=== PATIENT | male | born 1970 | race Caucasian/White ===

== ENCOUNTER 2020-07-19 07:37 | Observation (INO) | payer BC ==
[~2020-07-19] VITALS: Ht 182.9 cm; Wt 122.5 kg
[~2020-07-19 07:37] MED LIST: CLONIDINE1 EAC1 TD
[2020-07-19 08:37] LABS: RED BLOOD COUNT 4.52 M/UL (4.20-5.50); WHITE BLOOD COUNT 8.5 K/UL (4.5-11.0)
[2020-07-19] MEDS ORDERED: COREG 25MG TAB25 MG PO (15:14)
[2020-07-19] MEDS ORDERED: HUMALOG MI100 UNIT/3 SC ×2 (15:15→15:17)
[2020-07-19] MEDS ORDERED: HYDRALAZINE HCL50 MG PO (15:18)
[2020-07-19] MEDS ORDERED: SPIRONOLACTONE100 MG PO (15:18)
[2020-07-19] MEDS ORDERED: ASPIRIN EC81 MG PO (15:42)
[2020-07-19] MEDS ORDERED: NIFEDIPINE ER30 MG PO (15:44)
[2020-07-20 03:27] LABS: HEMOGLOBIN 13.4 gm/dl (14.0-17.5); RED BLOOD COUNT 4.4 M/UL (4.20-5.50); WHITE BLOOD COUNT 8.2 K/UL (4.5-11.0)
[2020-07-20] MEDS ORDERED: ATORVASTATIN CA20 MG PO (17:36)
== END 2020-07-20 19:43 | disposition home or self-care (01) ==
LOC: ER1 07:37 → MED SURG 4 10:19 → CDU 10:19 → MED SURG 4 10:19
PROVIDERS: Emergency Medicine; Physician Assistant; ADMIT Internal Medicine
DX: R55 Syncope and collapse (principal); E78.5 Hyperlipidemia, unspecified; I12.9 Hypertensive chronic kidney disease with stage 1 through stage 4 chronic kidney disease, or unspecified chronic kidney disease; E11.22 Type 2 diabetes mellitus with diabetic chronic kidney disease; N18.4 Chronic kidney disease, stage 4 (severe); E87.5 Hyperkalemia; E11.42 Type 2 diabetes mellitus with diabetic polyneuropathy; E11.65 Type 2 diabetes mellitus with hyperglycemia; E66.01 Morbid (severe) obesity due to excess calories; I44.7 Left bundle-branch block, unspecified; I38 Endocarditis, valve unspecified; Z95.2 Presence of prosthetic heart valve; Z68.37 Body mass index [BMI] 37.0-37.9, adult; Z79.82 Long term (current) use of aspirin; Z79.4 Long term (current) use of insulin; Z79.899 Other long term (current) drug therapy; Z20.822 Contact with and (suspected) exposure to COVID-19
CPT/HCPCS: ECHO; 0240U; 36415; 70450; 70551; 71045; 80048; 80053; 80061; 80307; 81001; 82550; 82553; 82962; 83036; 83605; 83690; 84484; 85025; 85379; 85610; 85730; 93005; 93306; 93880; 95819; 96365; 96374; 96375; 99285; G0378; J0610; J1953; J2060; J7030